=== PATIENT | female | born 1965 | race Caucasian/White ===

== ENCOUNTER 2021-04-19 10:30 | Outpatient (CLI) | payer BC | END 2021-04-19 10:31 | disposition home or self-care (01) | LOC: TBSIIMAG 10:30 | PROVIDERS: ATTEND Neurological Surgery | DX: M25.551 Pain in right hip (principal); M25.561 Pain in right knee; M54.50 Low back pain, unspecified; M47.816 Spondylosis without myelopathy or radiculopathy, lumbar region | CPT/HCPCS: 72100 ==

== ENCOUNTER 2021-09-08 12:55 | Outpatient (CLI) | payer BC | END 2021-09-08 12:56 | disposition home or self-care (01) | LOC: BICMAMMO 12:55 | PROVIDERS: ATTEND Family Medicine | DX: Z12.31 Encounter for screening mammogram for malignant neoplasm of breast (principal) | CPT/HCPCS: 77063; 77067 ==

== ENCOUNTER 2022-09-21 10:58 | Outpatient (CLI) | payer BC | END 2022-09-21 10:59 | disposition home or self-care (01) | LOC: BICMAMMO 10:58 | PROVIDERS: ATTEND Obstetrics & Gynecology | DX: Z12.31 Encounter for screening mammogram for malignant neoplasm of breast (principal) | CPT/HCPCS: 77063; 77067 ==

== ENCOUNTER 2024-04-11 09:19 | Outpatient (CLI) | payer BC | END 2024-04-11 09:20 | disposition home or self-care (01) | LOC: BICMAMMO 09:19 | PROVIDERS: ATTEND Obstetrics & Gynecology | DX: R92.8 Other abnormal and inconclusive findings on diagnostic imaging of breast (principal); N63.20 Unspecified lump in the left breast, unspecified quadrant | CPT/HCPCS: G0279 ==